=== PATIENT | female | born 1950 | race Caucasian/White ===

== ENCOUNTER 2023-03-02 18:47 | Emergency (ER) | payer OTHER, MEDICAID ==
[~2023-03-02] VITALS: Ht 157.5 cm; Wt 71.7 kg
[2023-03-02 19:19] VITALS: O2SAT 99
[2023-03-02 19:53] LABS: BASOPHILS % 0.8 % (0.0-2.0); HEMATOCRIT. 36.8 % (36.0-48.0); HEMOGLOBIN. 12.2 g/dL (12.0-16.0); LYMPHOCYTES % 19.5 % (20.0-50.0); MEAN CORPUSCULAR HGB CONC 33.3 g/dL (31.0-37.0); MEAN PLATELET VOLUME 8.8 fl (7.4-10.4); MONOCYTES % 6.8 % (2.0-8.0); NEUTROPHILS % 68.9 % (40.0-76.0); PLATELET 202 x1000/uL (130-400); RED BLOOD CELL COUNT 4.23 mill/uL (4.2-5.4); RED CELL DISTRIBUTION WIDTH 13.7 % (11.6-14.6); WHITE BLOOD COUNT 9.5 x1000/uL (4.5-11.0)
[2023-03-02 19:59] LABS: CLARITY URINE CLEAR (CLEAR); COLOR URINE YELLOW (YELLOW); GLUCOSE URINE NEGATIVE (NEGATIVE); KETONES URINE NEGATIVE (NEGATIVE); LEUKOCYTE ESTERASE URINE 1+ (NEGATIVE); NITRITE URINE NEGATIVE (NEGATIVE); OCCULT BLOOD URINE NEGATIVE (NEGATIVE); PH URINE 5.5 (4.5-8.0); PROTEIN URINE TRACE (NEGATIVE); SPECIFIC GRAVITY URINE 1.022 (1.005-1.030)
[2023-03-02 20:00] LABS: CHLORIDE 109 mEq/L (98-107); INDEX HEMOLYSI 1 (1-3); INDEX ICTERIC 1 (1-4); INDEX LIPEMIC 1 (1-3); POTASSIUM 3.8 mEq/L (3.5-5.1); SODIUM 142 mEq/L (136-145)
[2023-03-02] MEDS ORDERED: KETOROLAC 60MG/2ML VIAL IM ONE (20:00)
[2023-03-02 20:08] LABS: ALANINE AMINOTRANSFERASE 25 IU/L (13-61); ALBUMIN 3.9 g/dL (3.4-5.0); ASPARTATE AMINOTRANSFERASE 8 IU/L (15-37); BILIRUBIN TOTAL 0.6 mg/dL (0.1-1.0); CALCIUM 8.4 mg/dL (8.5-10.1); CARBON DIOXIDE 28 mEq/L (21-32); GLUCOSE 106 mg/dL (70-105); PROTEIN TOTAL 7.2 g/dL (6.0-8.3); UREA NITROGEN BLOOD 23 mg/dL (7-21)
[2023-03-02 20:17] LABS: BACTERIA URINE 1+; RBC URINE 0-2 /hpf (0-2); SQUAMOUS EPITHELIAL CELL URINE FEW /lpf (RARE/1+)
[2023-03-02] MEDS ORDERED: IBUP-2028 MT (21:54)
[2023-03-02] MEDS ORDERED: CIPR500T5 MT (21:54)
[2023-03-02] MEDS ORDERED: VENL-180 MT (21:57)
[2023-03-02 22:00] VITALS: BP 142/65; PULSE 65; RESP 15; TEMP 98.3
== END 2023-03-02 22:04 | disposition home or self-care (01) ==
LOC: ER 20:13
DX: N10 Acute pyelonephritis (principal); Z76.0 Encounter for issue of repeat prescription
CPT/HCPCS: 99284; 74176; 80053; 81003; 85025; 36415; J1885

== ENCOUNTER 2023-05-27 11:56 | Emergency (ER) | payer OTHER, MEDICAID ==
[~2023-05-27] VITALS: Ht 157.5 cm; Wt 75.0 kg
[~2023-05-27 11:56] MED LIST: CIPR500T5 MT; IBUP-2028 MT; VENL-180 MT
[2023-05-27 12:14] VITALS: BP 139/78; PULSE 94; RESP 16; O2SAT 98
[2023-05-27 13:10] VITALS: TEMP 97.8
[2023-05-27] MEDS ORDERED: ACETAMINOPHEN 325MG TABLET PO STA (13:10)
[2023-05-27] MEDS ORDERED: CETI10TA6 MT ×3 (13:43→14:41)
[2023-05-27] MEDS ORDERED: HYDR28.485 TOP ×3 (13:43→14:41)
== END 2023-05-27 16:10 | disposition home or self-care (01) ==
LOC: ER 12:27
DX: L29.9 Pruritus, unspecified (principal)
CPT/HCPCS: 82962; 99282

== ENCOUNTER 2023-11-01 14:31 | Emergency (ER) | payer MEDICARE, MEDICAID ==
[~2023-11-01] VITALS: Ht 165.1 cm; Wt 72.0 kg
[~2023-11-01 14:31] MED LIST changes: +CETI10TA6 MT; +HYDR28.485 TOP
[2023-11-01 14:44] VITALS: BP 142/78; PULSE 98; RESP 16; TEMP 98.4; O2SAT 99
== END 2023-11-01 19:06 | disposition home or self-care (01) ==
LOC: ER 14:41
DX: S09.90XA Unspecified injury of head, initial encounter (principal); S60.222A Contusion of left hand, initial encounter; E78.00 Pure hypercholesterolemia, unspecified; I10 Essential (primary) hypertension; Z90.49 Acquired absence of other specified parts of digestive tract; Z98.890 Other specified postprocedural states; Z88.0 Allergy status to penicillin; Y08.89XA Assault by other specified means, initial encounter; Y93.89 Activity, other specified; Y92.89 Other specified places as the place of occurrence of the external cause; Y99.8 Other external cause status
CPT/HCPCS: 73120; 99284

== ENCOUNTER 2024-06-21 19:24 | Emergency (ER) | payer MEDICARE, MEDICAID ==
[~2024-06-21] VITALS: Ht 170.2 cm; Wt 64.0 kg
[2024-06-21 19:28] VITALS: BP 143/78; TEMP 98.2
[2024-06-21] MEDS ORDERED: ALBUTEROL (0.083%) 2.5MG/3ML NEB HHN ONE (19:45)
[2024-06-21] MEDS ORDERED: ALBU18HF2 IH (21:08)
[2024-06-21] MEDS ORDERED: P50 MT (21:10)
[2024-06-21 21:45] VITALS: PULSE 76; RESP 20; O2SAT 98
[2024-06-21] MEDS: ALBUTEROL (0.083%) 2.5MG/3ML NEB HHN NR (21:45)
== END 2024-06-21 22:16 | disposition home or self-care (01) ==
LOC: ER 19:24
DX: J45.901 Unspecified asthma with (acute) exacerbation (principal); F43.9 Reaction to severe stress, unspecified; F41.9 Anxiety disorder, unspecified; E78.00 Pure hypercholesterolemia, unspecified; Z88.0 Allergy status to penicillin
CPT/HCPCS: 71045; 94640; 99283